=== PATIENT | female | born 1930 | race Caucasian/White ===

== ENCOUNTER 2017-09-16 12:52 | Emergency (ER) | payer MEDICARE, BC ==
--- NOTE | 2017-09-16 13:05 | ED Physician Documentation ---
General Adult - HISTORIAN Historian: patient, child - HPI Stated Complaint: fell at [facility] Chief Complaint: Fall Onset: minutes (15) Timing: still present Severity: mild Modifying Factors: when she walks her left ankle hurts Context: sharp pain with walking, facial bruise Quality: Sharp pain with walking Location: Left ankle, lac to lip and eye swelling Further Comments: no Last known Well Date: 09/16/17 Last Known Well Time: 12:00 Last known Well Code/Unknown Code: Unknown - ROS CONST: no problems EYES/ENT: none CVS/RESP: none GI/: none MS/SKIN/LYMPH: other (laceration on lip and bruise on left eye /face ) - PAST HX Past History: other (HTN ) Other History: none Surgeries/Procedures: other Immunizations: referred to PCP Allergies/Adverse Reactions: Allergies Allergy/AdvReac Type Severity Reaction Status Date / Time horse serum Allergy Intermediate Hives Uncoded 09/11/15 10:00 Home Medications: Ambulatory Orders Medication Instructions Recorded Aspirin [Treva] 81 mg PO QD 01/27/13 Tramadol HCl [Ultram] 50 mg PO BID PRN #20 tablet 09/16/17 - SOCIAL HX Smoking History: non-smoker Alcohol Use: none Drug Use: none - FAMILY HX Family History: No - VITAL SIGNS Vital Signs: Vital Signs Temp Pulse Resp BP Pulse Ox 138/68 09/11/15 10:20 - REVIEWED ASSESSMENTS Nursing Assessment Reviewed: Yes Vitals Reviewed: Yes Procedures Wound Location: face Wound's Depth, Shape: superficial Wound Explored: clean Betadine Prep?: No (elma ) Wound Repaired With: Dermabond Progress - Progress Progress: 1445: b/p remains high denies any headache although she is starting to feel a little pain and would take a Tylenol 1600: B/P is improved and she denies any pain - will discharge [facility] ED Results Lab/Radiology - Radiology Radiology Impressions: Examination: Plain film ankle History: Injury Findings: 3 views of the ankle demonstrates osteopenia. Faint lucency involving the medial malleolus. Remaining cortical margins appear to be intact. Inferior calcaneal spur. Talar dome is intact. No soft tissue swelling. Small joint effusion. Impression: Osteopenia. Degenerative changes. Likely nondisplaced fracture involving the medial malleolus. Electronically signed on Sep 16, 2017 1:53:02 PM NURSE TRANSPLANT by: Cholo Altamirano Examination: Plain film facial History: Trauma Findings: 3 views of the facial bones demonstrates normal cortical margins. No fracture or dislocation. No soft tissue swelling. Dental hardware. Impression: No fracture by film sensitivity. Electronically signed on Sep 16, 2017 1:53:56 PM NURSE TRANSPLANT by: Cholo Altamirano Examination: CT head without contrast History: Fall Comparison exam: None available Technique: Noncontrast head CT protocol. Findings: Ventricles and sulci are mildly prominent. Cerebrocerebellar parenchyma demonstrates periventricular low attenuation consistent with small vessel disease. 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 No evidence for parenchymal hemorrhage. No evidence for mass or mass effect. No midline shift. No extra axial fluid collections. Partial visualization of the paranasal sinuses , mastoid air cells, orbits, skull and scalp without gross regularity. Impression: Age related changes. No acute parenchymal process. No hemorrhage. Electronically signed on Sep 16, 2017 1:57:09 PM NURSE TRANSPLANT by: Cholo Altamirano General Adult Physical Exam - PHYSICAL EXAM GENERAL APPEARANCE: no distress EENT: eye inspection normal, ENT inspection normal, SINCERE NECK: normal inspection RESPIRATORY: no resp distress, chest non-tender, breath sounds normal CVS: reg rate & rhythm, heart sounds normal, no murmur ABDOMEN: soft, normal bowel sounds, no distension, non-tender BACK: normal inspection SKIN: warm/dry, other (bruise on left face /eye ) EXTREMITIES: other (tenderness over left ankle with movement or weight bearing ) NEURO: oriented X3, CN's nml as tested, motor nml, sensation nml, mood/affect nml, cognition normal Discharge Clincal Impression: Fall Qualifiers: Encounter type: initial encounter Qualified Code(s): W19.XXXA - Unspecified fall, initial encounter Prescriptions: Tramadol HCl [Ultram] 50 mg PO BID PRN #20 tablet PRN Reason: Pain Referrals: Amol Thomas MD [Primary Care Provider] - 2 Days Condition: Stable Disposition: 01 HOME, SELF-CARE Decision to Admit: NO Date of Decison to Admit: 09/16/17 Decision Time: 16:00
--- NOTE | 2017-09-16 13:54 | Diagnostic Imaging Report ---
BESS JIMENEZ [facility] [address] [facility] [address] [address] Report Submission Date: Sep 16, 2017 1:53:02 PM IT SOFTWARE DEVELOPER Patient Study Name: GEOVANNA GARCIAS Date: Sep 16, 2017 1:18:08 PM IT SOFTWARE DEVELOPER Modality Type: CR Gender: F Description: LOWER EXTREMITY : [birth year] Institution: [facility] Physician: BESS JIMENEZ Examination: Plain film ankle History: Injury Findings: 3 views of the ankle demonstrates osteopenia. Faint lucency involving the medial malleolus. Remaining cortical margins appear to be intact. Inferior calcaneal spur. Talar dome is intact. No soft tissue swelling. Small joint effusion. Impression: Osteopenia. Degenerative changes. Likely nondisplaced fracture involving the medial malleolus. Electronically signed on Sep 16, 2017 1:53:02 PM IT SOFTWARE DEVELOPER by: Cholo MCKEON
--- NOTE | 2017-09-16 13:55 | Diagnostic Imaging Report ---
BESS JIMENEZ [facility] [address] [facility] [address] [address] Report Submission Date: Sep 16, 2017 1:53:56 PM INSTRUCTOR TECHNICAL TRAINING Patient Study Name: GEOVANNA GARCIAS Date: Sep 16, 2017 1:26:17 PM INSTRUCTOR TECHNICAL TRAINING Modality Type: CR Gender: F Description: FACIAL BONES : [birth year] Institution: [facility] Physician: BESS JIMENEZ Examination: Plain film facial History: Trauma Findings: 3 views of the facial bones demonstrates normal cortical margins. No fracture or dislocation. No soft tissue swelling. Dental hardware. Impression: No fracture by film sensitivity. Electronically signed on Sep 16, 2017 1:53:56 PM INSTRUCTOR TECHNICAL TRAINING by: Cholo MCKEON
--- NOTE | 2017-09-16 13:57 | Diagnostic Imaging Report ---
BESS JIMENEZ [facility] [address] [facility] [address] [place], [place]. [address] Report Submission Date: Sep 16, 2017 1:57:09 PM STRETCH MACHINE OPERATOR Patient Study Name: GEOVANNA GARCIAS Date: Sep 16, 2017 1:34:20 PM STRETCH MACHINE OPERATOR Modality Type: CT\SR Gender: F Description: CT BRAIN W/O CONTRAST : [birth year] Institution: [facility] Physician: BESS JIMENEZ Examination: CT head without contrast History: Fall Comparison exam: None available Technique: Noncontrast head CT protocol. Findings: Ventricles and sulci are mildly prominent. Cerebrocerebellar parenchyma demonstrates periventricular low attenuation consistent with small vessel disease. 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 No evidence for parenchymal hemorrhage. No evidence for mass or mass effect. No midline shift. No extra axial fluid collections. Partial visualization of the paranasal sinuses , mastoid air cells, orbits, skull and scalp without gross regularity. Impression: Age related changes. No acute parenchymal process. No hemorrhage. Electronically signed on Sep 16, 2017 1:57:09 PM STRETCH MACHINE OPERATOR by: Cholo MCKEON
[2017-09-16] MEDS: CloNIDine HCL 0.1 MG TABLET PO ONE ×2 (14:12→15:35)
[2017-09-16] MEDS: ACETAMINOPHEN 500 MG TABLET ONE (15:35)
[2017-09-16] MEDS: ACETAMINOPHEN 500 MG TABLET PO ONE (15:35)
[2017-09-16 16:00] VITALS: BP 165/99
== END 2017-09-16 16:00 | disposition home or self-care (01) ==
LOC: ED 12:52
DX: S01.511A Laceration without foreign body of lip, initial encounter (principal); W19.XXXA Unspecified fall, initial encounter; Y93.9 Activity, unspecified; Y99.9 Unspecified external cause status
CPT/HCPCS: 12011; 70150; 70450; 73610; 99283; L4350

== ENCOUNTER 2018-01-19 15:43 | Emergency (ER) | payer MEDICARE, BC ==
--- NOTE | 2018-01-19 15:59 | ED Physician Documentation ---
Fall - HISTORIAN Historian: patient - HPI Stated Complaint: fall and knee pain facial swelling on lip Chief Complaint: Fall Onset: just prior to arrival Where: other ([place]) Context: tripped r: mild Associated Symptoms:: no loss of consciousness Location of Pain/Injury: face, lower extremity (left knee ) Injury to Right Extremity: none Injury to Left Extremity: knee Further Comments: yes (she states she did not get dizzy. NO LOC . she has pain in her knee (left) she states she did hit her upper lip. No broken teeth. No pain in that area.) - ROS CONST: no problems NEURO: denies: dizziness, anxiety MS/SKIN/LYMPH: denies: weakness, numbness, neck pain, back pain CVS/RESP: none GI/: denies: nausea, vomiting - PAST HX Past History: other Immunizations: UTD Allergies/Adverse Reactions: Allergies Allergy/AdvReac Type Severity Reaction Status Date / Time horse serum Allergy Intermediate Hives Uncoded 01/19/18 15:55 Home Medications: Ambulatory Orders Medication Instructions Recorded Aspirin [Treva] 81 mg PO QD 01/27/13 - SOCIAL HX Smoking History: non-smoker Alcohol Use: none Drug Use: none - FAMILY HX Family History: none - VITAL SIGNS Vital Signs: Vital Signs Temp Pulse Resp BP Pulse Ox 165/99 09/16/17 16:00 - REVIEWED ASSESSMENTS Nursing Assessment Reviewed: Yes Vitals Reviewed: Yes ED Results Lab/Radiology - Radiology Radiology Impressions: Examination: Plain film left knee History: LT KNEE PAIN AFTER FALL TODAY, NO PREVIOUS INJURY (Hx) Findings: 3 views of the left knee demonstrates diffuse osteopenia. Tibial spine , medial/lateral, and patellar spurring. No displaced fracture line. Significant soft tissue swelling. Impression: Osteopenia and degenerative changes. Soft tissue swelling. No displaced fracture. Electronically signed on Jan 19, 2018 4:45:02 PM CDT by: Cholo Hunter Physical Exam - Physical Exam General Appearance: no acute distress Head: non-tender, no swelling Neck: non-tender Eye: SINCERE ENT: nml external inspection Resp/CVS: chest non-tender, no ecchymosis, breath sounds nml Abdomen: soft, normal bowel sounds, no distension, non-tender Neuro: oriented x3, CN's nml as tested, sensation nml, motor nml, mood/affect nml, glass calibrator nml, reflexes nml Skin: color nml, other (bruise on upper lip, small laceration above upper lip, teeth intact. Moving lip without incident. ) Back: normal inspection Extremities: no pedal edema, other (left knee with swelling and pain to palpation on lateral side. FROM . strenth normal. able to bear weight ) - [place] Coma Score Eyes Open: Spontaneous Speech: Oriented Motor: Obeys Commands Discharge Clincal Impression: Fall Qualifiers: Encounter type: initial encounter Qualified Code(s): W19.XXXA - Unspecified fall, initial encounter Referrals: Amol Thomas MD [Primary Care Provider] - 2 Days Comments: 1. Keep area above lip clean and dry 2. Ice to knee and lip 3. Tylenol or Ibuprofen as needed for pain 4. Knee elevated 5. Return to ER for any concerns 6. See PCP in 4-6 days Condition: Stable Disposition: 01 HOME, SELF-CARE Decision to Admit: NO Date of Decison to Admit: 01/19/18 Decision Time: 16:55
--- NOTE | 2018-01-19 16:56 | Diagnostic Imaging Report ---
BESS JIMENEZ [facility] [address] [facility] [address] [address] Report Submission Date: Jan 19, 2018 4:45:02 PM CDT Patient Study Name: GEOVANNA GARCIAS Date: Jan 19, 2018 4:20:03 PM CDT Modality Type: DX Gender: F Description: LOWER EXTREMITY : [birth year] Institution: [facility] Physician: BESS JIMENEZ Examination: Plain film left knee History: LT KNEE PAIN AFTER FALL TODAY, NO PREVIOUS INJURY (Hx) Findings: 3 views of the left knee demonstrates diffuse osteopenia. Tibial spine , medial/lateral, and patellar spurring. No displaced fracture line. Significant soft tissue swelling. Impression: Osteopenia and degenerative changes. Soft tissue swelling. No displaced fracture. Electronically signed on Jan 19, 2018 4:45:02 PM CDT by: Cholo MCKEON
[2018-01-19 17:06] VITALS: BP 142/87
== END 2018-01-19 17:05 | disposition home or self-care (01) ==
LOC: ED 15:43
DX: M25.562 Pain in left knee (principal); W19.XXXA Unspecified fall, initial encounter; Y93.9 Activity, unspecified; Y92.22 Religious institution as the place of occurrence of the external cause; Y99.9 Unspecified external cause status
CPT/HCPCS: 73562; 99282; 99283

== ENCOUNTER 2018-07-22 10:04 | Outpatient (CLI) | payer MEDICARE, BC ==
[2018-07-22 12:01] LABS: eGFR (Non-African) > 60
[2018-07-22 18:32] LABS: BASO % 0.3 % (0.0-1.5); EOS % 3.1 % (0.0-6.8); LYMPH ABS # 3.43 thou/uL (0.60-4.00); MCH. 29.9 pg (28.0-34.0); MCV 94.7 fL (80.0-100.0); MONOCYTE % 7.5 % (0.0-11.0); PLATELET COUNT 293 thou/uL (130-400)
== END 2018-07-22 10:05 ==
LOC: LAB 10:04
PROVIDERS: ATTEND Family Medicine
DX: E78.00 Pure hypercholesterolemia, unspecified (principal); I10 Essential (primary) hypertension
CPT/HCPCS: 36415; 80053; 80061; 85025